=== PATIENT | male | born 1950 | race Caucasian/White ===

== ENCOUNTER 2016-06-09 01:22 | Day surgery (SDC) | payer OTHER ==
[~2016-06-09] VITALS: Ht 167.6 cm; Wt 95.0 kg
[2016-06-09] VITALS (12 sets, daily range): BP systolic 112–141; BP diastolic 58–90; PULSE 62–75; RESP 15–20; O2SAT 94–96
[~2016-06-09 01:22] MED LIST: ASPI-973 PO; CLOP75TA28 PO; COLE625T PO; HYDR25TA4 PO; ISOS60TA2 PO; KEN25CR EXT; METR59LO2 TOP; NEBI5TAB8 PO; NITR0.4T SL; OXYB5TAB10 PO; PANT40TA3 PO; SIMV80TA4 PO; TERA5CAP6 PO; VIAG25T PO
[2016-06-09 10:15] LABS: BASOPHILS % (AUTO) 0.6 % (0-3); EOSINOPHILS % (AUTO) 2.7 % (0-5); MONOCYTES % (AUTO) 5.7 % (4-12); Mean Corpuscular Hemoglobin 27.9 pg (27.0-35.0); Mean Corpuscular Volume 85.8 fL (81-100); NEUTROPHILS % (AUTO) 77.6 % (40-74); Platelet Count 301 bil/L (150-400)
[2016-06-09] MEDS ORDERED: POTA10CA42 PO (10:46)
[2016-06-09] MEDS ORDERED: 0.9% Sodium Chloride 1,000 ML ONE (10:58)
[2016-06-09] MEDS ORDERED: Heparin 5,000 Units/500 mL NS Premix IV ONE (13:01)
[2016-06-09] MEDS ORDERED: Heparin 1,000 Units/500 mL NS Premix IV ONE (13:01)
[2016-06-09] MEDS ORDERED: fentaNYL-PF 50 mCg/mL 2 mL Inj ONE (13:17)
[2016-06-09] MEDS ORDERED: 0.9% Sodium Chloride 100 ML ONE (13:54)
[2016-06-09] MEDS ORDERED: Adenosine Inj 40 ML IV ONE (13:54)
[2016-06-09] MEDS ORDERED: Heparin 1,000 Unit/mL 10 mL Inj ONE (14:03)
--- NOTE | 2016-06-09 15:44 | NUR ---
Received Received from [facility] Dinkey about 1440. Right groin without arterial bleeding or hematoma. Starclose was placed causing track ooze. lab specialist personal aware. Continued to ooze so dressing changed to gauze dressing and pressure dressing with 5lb sandbag applied. Taking po fluids without nausea. Reviewed groin precautions and after care. Verbalizes understanding. Care transferred to Norm Ochoa RN about 1530.
--- NOTE | 2016-06-09 17:37 | CS94 ---
[address] [address] DIAGNOSTIC CARDIAC CATHETERIZATION PATIENT: BRENDAN ZELAYA : 1950 MR#: [id number] ADMIT: 06/09/2016 JOB ID: [id number] SERVICE DATE: 06/09/2016 PATIENT PROFILE: The patient is a 66-year-old male with history of hypertension, hypercholesterolemia, and prior smoker. He had stent placement to the left anterior descending artery in 1995 and brachytherapy in 1998 for restenosis, stent to the mid right coronary artery in July 2005 and stent to the ostium of the right coronary artery in December 2006. The patient developed recurrent angina for the past two months. PROCEDURE: 1. Retrograde left heart catheterization. 2. Selective coronary angiography. 3. Fractional flow reserve to the left main and left anterior descending. 4. Fractional flow reserve to the left main and proximal circumflex artery. 5. Left ventricular angiogram. 6. Vascular closure device: StarClose. COMPLICATIONS: None. PROCEDURE IN DETAIL: Retrograde left heart catheterization was performed from the right groin under 1% lidocaine local anesthesia using a 6-[place] sheath. Selective coronary angiogram was performed in multiple projections, including cranial and caudal angulations, with hand injected contrast via JL4 and 3DRC catheters. Heparin 4,000 units were given. A 6-[place] JL4 guide was advanced to the left coronary ostium. A flow wire was placed inside the left anterior descending artery. Adenosine was given infusion IV. FFR of the left main and left anterior descending artery was measured. The flow wire was redirected into the mid circumflex artery. Adenosine was given infusion IV. FFR of the left main and proximal circumflex artery was measured. A 6-[place] angulated pigtail catheter was advanced to the left ventricle and left ventricular angiogram was performed in the 30 degree VELA view by injecting contrast at 14 cc/second for 2 seconds. This catheter was withdrawn. Right femoral angiogram was performed. Following sheath removal, hemostasis was achieved by using a StarClose device. The patient tolerated the procedure well. He was transferred to [facility] in good condition. TOTAL CONTRAST USED: 112 cc. FLUOROSCOPY TIME: 4 minutes. RESULTS: 1. Selective coronary angiogram. a. Left main coronary artery has distal 40% stenosis. b. The left anterior descending artery has diffuse in-stent restenosis of 50% to 60%. c. The first diagonal branch is moderate size and has 80% stenosis at its origin. The second diagonal branch is moderate size and has 70% stenosis at its origin. d. The circumflex artery has 70% stenosis at its origin and 60% stenosis in the mid portion. The first obtuse marginal branch has long 60% to 70% stenosis. The second obtuse marginal branch has minor irregularity. The 3rd obtuse marginal branch has 60% stenosis in the proximal portion. e. The dominant right coronary artery has ostial 90% stenosis. 2. FFR of the left main and left anterior descending artery is 0.68, which indicates hemodynamic significant stenosis. 3. FFR of the left main and proximal circumflex artery is 0.80, which indicates intermediate lesion. 4. Left ventricular angiogram demonstrates normal left ventricular systolic function (visually estimated ejection fraction 65%). There is no wall motion abnormality. There is no mitral regurgitation. 5. There is no gradient across the aortic valve on catheter withdrawal. 6. Aortic pressure is 132/51 mmHg. Left ventricular pressure is 137/2 mmHg. 7. Left ventricular end-diastolic pressure is 16 mmHg. CONCLUSION: 1. Severe triple-vessel coronary artery disease. 2. Left ventricular ejection fraction of 65%. 3. LVEDP is 16 mmHg. MTDD
== END 2016-06-09 23:59 | disposition home or self-care (01) ==
LOC: SOUO 01:22
PROVIDERS: ATTEND Internal Medicine Interventional Cardiology
DX: I25.119 Atherosclerotic heart disease of native coronary artery with unspecified angina pectoris (principal); T82.855A Stenosis of coronary artery stent, initial encounter; I10 Essential (primary) hypertension; E78.00 Pure hypercholesterolemia, unspecified; Z87.891 Personal history of nicotine dependence; G47.33 Obstructive sleep apnea (adult) (pediatric); I87.2 Venous insufficiency (chronic) (peripheral); E66.9 Obesity, unspecified; Z68.30 Body mass index [BMI] 30.0-30.9, adult; I25.2 Old myocardial infarction; Z79.82 Long term (current) use of aspirin
CPT/HCPCS: 36415; 80048; 85025; 85610; 93458; 93571; 93572; C1760; C1769; C1887; J0153; J1200; J1644; J2250; Q9967

== ENCOUNTER 2017-01-06 03:02 | Day surgery (SDC) | payer OTHER ==
[2017-01-06] VITALS (13 sets, daily range): BP systolic 119–150; BP diastolic 72–81; PULSE 62–70; RESP 16; O2SAT 95–96
[~2017-01-06] VITALS: Ht 167.6 cm; Wt 90.9 kg
[~2017-01-06 03:02] MED LIST changes: -HYDR25TA4 PO; +ISOS30TA4 PO; -ISOS60TA2 PO; -KEN25CR EXT; +LIP40 PO; +LOSA25TA2 PO; -METR59LO2 TOP; -SIMV80TA4 PO; -TERA5CAP6 PO
[2017-01-06 09:11] LABS: BASOPHILS % (AUTO) 0.2 % (0-3); MONOCYTES % (AUTO) 5.8 % (4-12); Mean Corpuscular Hemoglobin 26.3 pg (27.0-35.0); Mean Corpuscular Volume 80.5 fL (81-100); NEUTROPHILS % (AUTO) 79.5 % (40-74); Platelet Count 364 bil/L (150-400)
--- NOTE | 2017-01-06 10:01 | NUR ---
Admitted for a heart cath today for a ongoing history of anterior chest tightness. Patient had a 5 way CABG 2 and states, "It never felt right". + history of 3 stents with 2 stent in stents - with Dr Jefferson 1997 - here at [facility] in [id number]. Admits today pain free.
--- NOTE | 2017-01-06 10:15 | NUR ---
WBC elevated 12.1 - afebrile - Dr Chavez notified.
[2017-01-06] MEDS ORDERED: Heparin 10,000 Unit/1,000 mL NS Premix IV ONE ×2 (10:44→11:46)
[2017-01-06] MEDS ORDERED: Heparin 1,000 Units/500 mL NS Premix IV ONE (10:44)
[2017-01-06] MEDS ORDERED: fentaNYL-PF 50 mCg/mL 2 mL Inj ONE (11:00)
[2017-01-06] MEDS ORDERED: Heparin 1,000 Unit/mL 10 mL Inj ONE (11:00)
[2017-01-06] MEDS ORDERED: 0.9% Sodium Chloride 50 ML ONE (11:08)
--- NOTE | 2017-01-06 12:53 | NUR ---
Returned from cathodic protection technician - Diagnostic heart cath only.
--- NOTE | 2017-01-06 13:16 | NUR ---
Plan - Referral back to the [facility] - [address] CABG collapsed, or occluded. Pt and have spoken with Dr Chavez. Dr Chavez's office will arrange follow up.
--- NOTE | 2017-01-06 13:32 | CS94 ---
[address] [address] DIAGNOSTIC CARDIAC CATHETERIZATION PATIENT: BRENDAN ZELAYA : 1950 MR#: [id number] ADMIT: 01/06/2017 JOB ID: [id number] SERVICE DATE: 01/06/2017 PATIENT PROFILE: The patient is a 66-year-old male who underwent coronary artery bypass surgery x5 on July 01, 2016 utilizing WELLS graft to the LAD, BHARGAV graft to the RCA, sequential saphenous vein graft to the OM1 and OM3, and radial graft to the first diagonal. The patient continues to experience angina and shortness of breath on exertion. PROCEDURE: 1. Retrograde left heart catheterization. 2. Selective coronary angiography. 3. Saphenous vein graft angiography. 4. Arterial graft angiography. 5. Left ventricular angiogram. 6. Ascending aortogram. 7. Right heart catheterization. VASCULAR CLOSURE DEVICE: Perclose. COMPLICATIONS: None. METHOD: Combined right and left heart catheterization was performed from the right groin under 1% lidocaine local anesthesia using a 6-[place] and a 7-[place] sheaths. A 7-[place] catheter was used for the right heart pressures. Cardiac output was determined by thermodilution and TRINITY method. Selective coronary angiogram was performed in multiple projections, including cranial and caudal angulations with hand injected contrast via JL4 and 3DRC catheters. An AL1 catheter was used for saphenous vein graft injection. A 4-Citizen [place] IM catheter was used for left internal mammary angiogram. A ODIN-1 catheter was used to get the catheter into the right subclavian artery. Nonselective right internal mammary angiogram was performed with 5-[place]izen [place] LCB catheter. A 6-[place] angulated pigtail catheter was advanced to the left ventricle and left ventricular angiogram was performed in the 30 degree VELA view by injecting contrast at the rate of 10 mL/second for 3 seconds. This catheter was withdrawn into the ascending aorta and ascending aortogram was performed in the 30 degree ASHLIE view by injecting contrast at a rate of 20 mL/second for 2 seconds. This catheter was withdrawn. Right femoral angiogram was performed before sheath removal. Hemostasis was achieved by using a Perclose device. The patient tolerated the procedure well. He was transferred to the [facility] in good condition. TOTAL CONTRAST USED: 200 mL. FLUOROSCOPY TIME: 13 minutes. RESULTS: 1. Mean right atrial pressure is 13 mmHg. Right ventricular pressure is 41/8 mmHg. Pulmonary artery pressure is 41/19 mmHg. 2. Arterial oxygen saturation is 93%. Mixed venous saturation is 69%. 3. Cardiac output by the thermodilution technique is 6.2 L/minute with an index of 3.1 L/minute/meter squared. 4. Cardiac output by the TRINITY method is 7.2 L/minute with an index of 3.6 L/minute/ meter squared. 5. Aortic pressure is 148/53 mmHg. 6. Left ventricular pressure is 140/8 mmHg. 7. Left ventricular end-diastolic pressure is 23 mmHg. 8. Selective coronary angiogram: a. Left main coronary artery has distal 50% stenosis. b. The left anterior descending artery has severe 70% stenosis in the proximal portion with heavy calcification. There is competitive flow going to the mid portion. The first diagonal branch has severe 80% stenosis at its origin. c. The circumflex artery has 50% stenosis at its origin. The first diagonal branch is small, with competitive flow into this branch. a. The dominant right coronary artery is not well visualized due to severe stenosis with extensive calcification at its origin. 9. The left internal mammary artery graft to the left anterior descending is an excellent conduit, with excellent distal anastomosis and distal runoff. 10. The right internal mammary artery graft is nonfunctioning. 11. The sequential saphenous vein graft to the first and third obtuse marginal branch is an excellent conduit. The graft anastomosis to the first obtuse marginal branch has severe stenosis at the origin of the first obtuse marginal branch. 12. Ascending aortogram demonstrated patent saphenous vein graft to the obtuse marginal branch and patent radial graft to the first diagonal. 13. Left ventricular angiogram demonstrates normal left ventricular systolic function (visually estimated ejection fraction 75% post PVC beats). CONCLUSION: 1. Cardiac index is 3.1 L/minute per meter squared. 2. Patent WELLS graft to the LAD. 3. Patent radial graft to the diagonal. 4. Patent sequential saphenous vein graft to OM1 and OM3 with severe stenosis at the graft anastomosis to the 1st OM. 5. Nonfunctioning WELLS graft. [facility]
--- NOTE | 2017-01-06 17:12 | NUR ---
Recovery post heart cath completed. Right access site for heart cath is non-tender and soft at time of discharge from [facility]. NSR no ectopy - Plan for follow up at the [facility] for re-do of 2 occluded grafts.
== END 2017-01-06 23:59 | disposition home or self-care (01) ==
LOC: SOUO 03:02
PROVIDERS: ATTEND Internal Medicine Interventional Cardiology
DX: I25.719 Atherosclerosis of autologous vein coronary artery bypass graft(s) with unspecified angina pectoris (principal); I25.119 Atherosclerotic heart disease of native coronary artery with unspecified angina pectoris; T82.898A Other specified complication of vascular prosthetic devices, implants and grafts, initial encounter; I10 Essential (primary) hypertension; E78.5 Hyperlipidemia, unspecified; G47.33 Obstructive sleep apnea (adult) (pediatric); I87.2 Venous insufficiency (chronic) (peripheral); E66.9 Obesity, unspecified; Z68.30 Body mass index [BMI] 30.0-30.9, adult; I25.2 Old myocardial infarction; Z79.82 Long term (current) use of aspirin; Z95.5 Presence of coronary angioplasty implant and graft; Z87.891 Personal history of nicotine dependence; Y83.2 Surgical operation with anastomosis, bypass or graft as the cause of abnormal reaction of the patient, or of later complication, without mention of misadventure at the time of the procedure
CPT/HCPCS: 36415; 80048; 85025; 93005; 93461; 93567; 99152; 99153; C1760; C1769; J1644; J2060; J2250; J3010; J7030; Q9967